=== PATIENT | female | born 1960 | race Caucasian/White ===

== ENCOUNTER 2018-05-15 12:15 | Inpatient (IN) | payer MEDICARE, OTHER, SELFPAY ==
[2018-05-15 13:04] LABS: #Basophils 0.1 thou/uL (0.0-0.2); #Eosinphils 0.2 thou/uL (0.0-0.7); #Lymphocytes 1.8 thou/uL (1.20-3.40); #Monocytes 0.8 thou/uL (0.11-0.59); #Neutrophils 9.1 thou/uL (1.40-6.50); %Basophils 0.5 % (0.0-1.0); %Eosinophils 1.5 % (0.0-10.0); %Lymphocytes 15.1 % (21.0-51.0); %Neutrophils 75.9 % (42.0-75.0); Hemoglobin 13.2 g/dL (12.0-16.0); Mean Corpuscular Hemoglobin 30.8 pg (27.0-31.0); Mean Corpuscular Volume 99.4 fL (78.0-98.0); Mean Platelet Volume 7.1 fL (7.4-10.4); Platelet Count 281 thou/uL (130-400); RBC Distribution Width 14.3 % (11.5-14.5); Red Blood Cell (RBC) Count 4.28 mill/uL (4.20-5.40)
[2018-05-15] MEDS ORDERED: ISOVUE-370 76%-LOCM 1 ML ONE (13:14)
[2018-05-15] MEDS ORDERED: Aspirin 325 MG TAB ONE (13:15)
[2018-05-15 13:18] LABS: ALT (SGPT) 26 U/L (8-55); AST (SGOT) 39 U/L (5-34); Albumin 3.7 g/dL (3.5-5.0); Alcohol 59 mg/dL (Less than 10); Alkaline Phosphatase 132 U/L (40-150); Anion Gap 13 mmol/L (10-20); BUN (Urea Nitrogen) 5 mg/dL (9.8-20.1); Bilirubin, Total 0.7 mg/dL (0.2-1.2); CK (CPK) 61 U/L (29-168); Calc. Creatinine Clearance 0 mL/min (70-130); Calcium 8.5 mg/dL (7.8-10.44); Carbon Dioxide 30 mmol/L (22-29); Chloride 90 mmol/L (98-107); Estimated GFR-MDRD 80; Globulin 3.2 g/dL (2.4-3.5); Glucose 106 mg/dL (70-105); Potassium 4.4 mmol/L (3.5-5.1); Protein, Total 6.9 g/dL (6.0-8.3); Sodium 129 mmol/L (136-145)
[2018-05-15 13:19] LABS: Platelet Morphology Comment Appears Adequate
--- NOTE | 2018-05-15 13:31 | RAD ---
CHEST 1 VIEW: Date: 05/15/18 HISTORY: Dyspnea. COMPARISON: Radiograph dated 03/16/16. FINDINGS: Heart size is enlarged. Old right central rib fractures. Increased left-sided pericardial fat pad. Ángela ngs are hypoinflated. IMPRESSION: No acute intrathoracic abnormality. POS: [facility]
[2018-05-15 13:39] LABS: CKMB 6.1 ng/mL (0-6.6)
[2018-05-15] MEDS ORDERED: predniSONE 20 MG TAB ONE (15:09)
[2018-05-15 15:28] LABS: Bilirubin Negative (Negative); Blood, Urine Negative (Negative); Clarity CLOUDY (Clear); Glucose, Urine (Dipstick) Negative (Negative); Leukocyte Large (Negative); Nitrite Negative (Negative); Protein, Urine (Dipstick) 30 mg/dL (Neg-Trace); Specific Gravity, Urine 1.006 (1.002-1.036); pH, Urine 7.5 (5.0-9.0)
[2018-05-15 15:31] LABS: Bacteria/HPF 2+ HPF (None Seen); Hyaline Casts/LPF 0-3 HYALINE CAST LPF (0-3 Hyaline); Pathc Cast-AUWi Flag 0.29 (0-2.49); RBC/HPF 0-3 HPF (0-3); Squamous Epithelial 0-3 HPF (0-3); WBC/HPF 21-50 HPF (0-3)
[2018-05-15 16:34] LABS: Troponin I 0.063 ng/mL (< 0.028)
[2018-05-15] MEDS ORDERED: Acetaminophen 325 MG TAB PO PRN ×2 (16:40→18:41)
--- NOTE | 2018-05-15 17:26 | CT ---
CT ANGIO CHEST PERFORMED WITH INTRAVENOUS CONTRAST ENHANCEMENT WITH 3D RECONSTRUCTIONS: HISTORY: Ethanol abuse. Tobacco abuse. Obesity. Shortness of breath. Low O2 saturations. FINDINGS: Subsegmental atelectatic changes are seen in the lung bases. Old right-sided rib fractures are incid entally noted. No significant mediastinal or hilar adenopathy. The patient's body habitus limits evaluation. In addition, the contrast bolus is less than optimal. The thoracic aorta is normal in caliber. No proximal pulmonary emboli are seen. More distal emboli are not excluded on the basis of this exam. The visualized liver parenchyma shows no focal findings. The gallbladder has been removed. IMPRESSION: Limited examination but no CT evidence for pulmonary embolus. POS: [facility]
[2018-05-15 17:36] LABS: Hemoglobin A1c 5.9 % (4.0-6.0)
[2018-05-15] MEDS ORDERED: Lorazepam 2 MG/ML VIAL SLOW IVP PRN (18:17)
[2018-05-15] MEDS ORDERED: Ondansetron ODT 4 MG TAB SL PRN (18:41)
[2018-05-15] MEDS ORDERED: Ondansetron PF 4 MG/2 ML Vial IVP PRN (18:41)
[2018-05-15] MEDS ORDERED: Nicotine 21 MG PATCH TOP PRN (18:43)
[2018-05-15] MEDS: Gabapentin 400 MG CAP PO SCH (20:31)
[2018-05-15] MEDS: cefTRIAXone\\ROCEPHIN 1 GM in Sodium Chloride 0.9% 100 ML IVPB SCH (20:31)
[2018-05-15 21:06] LABS: Troponin I 0.053 ng/mL (< 0.028)
[2018-05-16 06:11] LABS: Anion Gap 12 mmol/L (10-20); BUN (Urea Nitrogen) 5 mg/dL (9.8-20.1); Calc. Creatinine Clearance 144 mL/min (70-130); Carbon Dioxide 33 mmol/L (22-29); Chloride 92 mmol/L (98-107); Estimated GFR-MDRD 79; Glucose 155 mg/dL (70-105); Sodium 132 mmol/L (136-145)
[2018-05-16 06:25] LABS: Band 14 % (5-11); Hemoglobin 12.5 g/dL (12.0-16.0); Lymphocytes 8 % (21-51); MDiff Complete? YES; Mean Corpuscular HGB CONC 30.7 g/dL (32.0-36.0); Mean Corpuscular Hemoglobin 30.8 pg (27.0-31.0); Mean Platelet Volume 7.4 fL (7.4-10.4); Metamyelocyte 2 % (0-0); Monocytes 6 % (0-10); Neutrophil 70 % (42-75); Platelet Count 275 thou/uL (130-400); Platelet Morphology Comment Appears Adequate; Red Blood Cell (RBC) Count 4.08 mill/uL (4.20-5.40); White Blood Cell (WBC) Count 15.2 thou/uL (4.8-10.8)
[2018-05-16] MEDS: Gabapentin 400 MG CAP PO SCH ×3 (09:02→20:19)
[2018-05-16] MEDS: Enoxaparin Sodium 40 MG/0.4 ML SYRINGE SC SCH (09:03)
[2018-05-16] MEDS ORDERED: Furosemide 40 MG/4 ML VIAL SLOW IVP SCH (13:30)
--- NOTE | 2018-05-16 15:35 | PDOC.PN ---
- Subjective Encounter Start Date: 05/16/18 Encounter Start Time: 10:30 Subjective: pt up in bed no complains - Objective Resuscitation Status - Order Detail: 05/15/18 16:40 Resuscitation Status Routine Resuscitation Status: FULL: Full Resuscitation Vital Signs & Weight: Vital Signs (12 hours) Temp Pulse Resp BP BP Pulse Ox 05/16/18 15:22 98.4 F 96 18 167/76 H 95 05/16/18 12:05 98.3 F 82 20 132/86 98 05/16/18 12:03 132/86 05/16/18 08:00 155/73 H 05/16/18 07:50 97.6 F 104 H 20 155/73 H 155/73 H 94 L 05/16/18 04:00 97.8 F 107 H 20 158/82 H 98 Weight Weight 241 lb 2 oz I&O: 05/15/18 05/16/18 05/17/18 06:59 06:59 06:59 Intake Total 3000 Balance 3000 Result Diagrams: 05/16/18 05:37 05/16/18 05:37 Phys Exam - Physical Examination Neck: no nodes, no JVD, supple, full ROM Respiratory: no wheezing, no rales, no rhonchi, wheezing present, clear to auscultation bilateral Cardiovascular: RRR, no significant murmur, no rub, gallop, irregular Gastrointestinal: soft, non-tender, no distention, positive bowel sounds Musculoskeletal: edema present Neurological: non-focal, normal sensation, moves all 4 limbs Deviation from normal: some open blisters to left mayorga area Dx/Plan (1) Hypoxia Code(s): R09.02 - HYPOXEMIA Status: Acute (2) Alcohol abuse Code(s): F10.10 - ALCOHOL ABUSE, UNCOMPLICATED Status: Acute (3) Obesity hypoventilation syndrome Code(s): E66.2 - MORBID (SEVERE) OBESITY WITH ALVEOLAR HYPOVENTILATION Status : Acute (4) Alcohol abuse Code(s): F10.10 - ALCOHOL ABUSE, UNCOMPLICATED Status: Acute - Plan pt reluctant to get up and ambulate. Encouraged her to get up so we can -: see how much oxygen she needs. Pt states she wants to go to snf since -: she needs people to take care of her. will get PT to see pt. will continue -: abx for her for uti * . Review of Systems - Review of Systems Cardiovascular: negative: chest pain, palpitations, orthopnea, paroxysmal nocturnal dyspnea, edema, light headedness, other Gastrointestinal: negative: Nausea, Vomiting, Abdominal Pain, Diarrhea, Constipation, Melena, Hematochezia, Other Genitourinary: negative: Dysuria, Frequency, Incontinence, Hematuria, Retention , Other Musculoskeletal: negative: Neck Pain, Shoulder Pain, Arm Pain, Back Pain, Hand Pain, Leg Pain, Foot Pain, Other - Medications/Allergies Allergies/Adverse Reactions: Allergies Allergy/AdvReac Type Severity Reaction Status Date / Time No Known Allergies Allergy Verified 03/09/16 00:52 Medications: Current Medications Acetaminophen (Tylenol) 650 mg PO Q4H PRN PRN Reason: Headache/Fever/Mild Pain (1-3) Chlordiazepoxide HCl (Librium) 10 mg PO TID [facility] Last Admin: 05/16/18 14:39 Dose: 10 mg Enoxaparin Sodium (Lovenox) 40 mg SC 0900 [facility] Last Admin: 05/16/18 09:03 Dose: 40 mg Gabapentin (Neurontin) 800 mg PO TID [facility] Last Admin: 05/16/18 14:39 Dose: 800 mg Thiamine HCl 100 mg/ Sodium (Chloride) 51 mls @ 100 mls/hr IVPB Q24HR [facility] Last Admin: 05/15/18 21:17 Dose: 51 mls Ceftriaxone Sodium 1 gm/ (Sodium Chloride) 100 mls @ 200 mls/hr IVPB Q24HR [facility] Last Admin: 05/15/18 20:31 Dose: 100 mls Lorazepam (Ativan) 1 mg SLOW IVP Q6H PRN PRN Reason: Alcohol Withdrawal Sodium Chloride (Flush - Normal Saline) 10 ml IVF Q12HR [facility] Last Admin: 05/16/18 09:08 Dose: 10 ml Sodium Chloride (Flush - Normal Saline) 10 ml IVF PRN PRN PRN Reason: Saline Flush
[2018-05-16] MEDS: cefTRIAXone\\ROCEPHIN 1 GM in Sodium Chloride 0.9% 100 ML IVPB SCH (17:34)
--- NOTE | 2018-05-16 19:27 | HP ---
CHIEF COMPLAINT: Shortness of breath. HISTORY OF PRESENT ILLNESS: The patient is a 57-year-old female with a history of hypertension, currently not on any medication. She has also has a history of sleep apnea; however, could not afford to get a sleep study due to insurance issues, who was sent from the PCPs office for hypoxia. The patient stated that she went to visit her PCP and upon evaluation of her vitals, she was found to be hypoxic around the mid s, so the patient was sent to the hospital for further evaluation. The patient stated that last year in January, she went to visit her daughter in [facility]. She got pneumonia and after that she was in a custodial facility and then was discharged back home to her daughter. The patient states that she has moved here and has been quite alone and has nobody to help her around. She; however, drinks about 12 beers a day, sometimes also drinks liquor. The patient also states that she does not like taking showers because her bathroom is too small and she goes to motels or hotels to take showers because she just kind of feels better when she goes to hotels. Denies any chest tightness, any nausea, vomiting, or diarrhea. The patient states that "I know I have been short of breath for a significant amount of months and I know I require oxygen; however, I did not have insurance until now." The patient has been scheduled for a pulmonary sleep study and to see a director food and beverage; however, her appointment is later on in the month. The patient was admitted here due to hypoxia to hopefully to set her up with oxygen. PAST MEDICAL HISTORY: History of bipolar disorder, hypertension, anxiety, bilateral lower extremity neuropathy, depression, and osteoarthritis. PAST SURGICAL HISTORY: , cholecystectomy, and urethral stenting. SOCIAL HISTORY: She drinks about a 12 beers a day, sometimes including with liquor. She smokes a pack of cigarettes a day. Denies any recreational drug use. She is a full code. Lives alone in an apartment. REVIEW OF SYSTEMS: All negative except for the ones mentioned above in the HPI. ALLERGIES: SHE HAS NO KNOWN ALLERGIES. MEDICATIONS: She takes; 1. Gabapentin 400 mg t.i.d. 2. Motrin as needed. PHYSICAL EXAMINATION: VITAL SIGNS: As of the following; temperature of 98.3, heart rate of 82, 20, 98% on 3 L, and 132/86. GENERAL: She is awake, alert, and oriented x3. Able to speak complete sentences. Does not appear in distress. CV: S1 and S2 present. No murmurs, rubs, or gallops. LUNGS: Clear to auscultation. No rhonchi or wheezes noted. ABDOMEN: Soft and nontender. Bowel sounds are present x2. EXTREMITIES: She does have significant amount of lower extremity edema. She also does have some skin open wounds on her left mayorga area and also has tattooing on her left and right feet. NEUROLOGIC: Neurovascular knapp no focal deficits noted. SKIN: As I mentioned, she does have some broken blisters on her left mayorga area that have some mild erythema; however, no drainage has been noted and she does have significant thickening of the skin to her left ankle area. ASSESSMENT AND PLAN: The patient is a very pleasant 57-year-old female, who presents to the hospital with hypoxia. 1. Acute hypoxia. The patient most likely has hypoventilating syndrome due to obesity. She drops her saturations whenever she sleeps at night. The patient will be ambulated to see and most likely will qualify for oxygen, which we will set up. I did a CTA of chest to make sure that there was no other causes of her shortness of breath. A CTA was negative for any pulmonary embolisms. She did have some mild elevated troponins. I have done an echo, which is pending. However, she has no chest tightness or chest pain. 2. Hypertension. We will start the patient on some medications for her hypertension. 3. Morbid obesity. The patient has been advised for weight loss. However, she continues to eat, has been asking the staff members for multiple food trays. 4. Alcohol abuse. The patient's alcohol level was 58. We will put on CIWA protocol and put on Librium and also p.r.n. Ativan. 5. Smoking history. I advised her against smoking; however, she smokes a pack a day. She states that she is not going to smoke from today. 6. Deep venous thrombosis prophylaxis. We will put the patient on subcu Lovenox. Job ID: [id number]
[2018-05-17] MEDS ORDERED: Fentanyl BOLUS 250 ML IVPB PRN (01:29)
[2018-05-17] MEDS ORDERED: Lorazepam 2 MG/ML VIAL SLOW IVP PRN (01:29)
[2018-05-17] MEDS ORDERED: DISCONTINUE PREVIOUS NARCOTIC PAIN MEDICATIONS AND BENZODIAZEPINES FS SCH (01:29)
[2018-05-17] MEDS ORDERED: Propofol BOLUS 1,000 MG/100 ML VIAL IV PRN (01:29)
[2018-05-17] MEDS ORDERED: fentaNYL Citrate/PF 2,000 MCG in Sodium Chloride 0.9% 60 ML IV SCH (01:29)
[2018-05-17] MEDS ORDERED: Morphine 2 MG/ML SYRINGE SLOW IVP PRN (01:29)
[2018-05-17] MEDS ORDERED: Ventilator Sedation Protocol 1 EACH FS SCH (01:30)
--- NOTE | 2018-05-17 01:31 | PDOC.EVN ---
Event Note - Event Note Event Note: Code blue called and resident team promptly responded including Dr. Sun, validation software facilitator FMR physician. Compressions in progress at time of arrival. 1 mg epi given and appeared IV went bad. New IV site placed and another round of 1 mg epi given. Pulse obtained at next pulse check. 1st attempt of intubation via glidescope made by Dr. Rene. Patient then bagged and sats reached 94% but unable to further improve. Patient then intubated on 2nd attempt by myself via glidescope. Breath sounds noted in bilateral lung juarez. No air sound in abdomen. Good color change noted on colormetric CO2 detector. Blood pressure noted to be systolic > 140. O2 sat improved to 99%. Hospitalist caring for patient at bedside. Patient transferred to ICU.
--- NOTE | 2018-05-17 01:35 | PDOC.EVN ---
Event Note - Event Note Event Note: Code blue activated since pt became bradycardic and unresponsive, with ROSC, intubated, mildly tachy, blood pressure normal range, seems that pt. had gone in DT earlier today, will transfer to icu, consult critical care, follow recommendations.(please see code sheet for details) CXR reviewed and ET tube, OG tube in right position
[2018-05-17 01:40] LABS: INR-International Normal Ratio 1.1; Prothrombin Time 14.1 SEC (12.0-14.7)
[2018-05-17 01:46] LABS: Actual Bicarbonate (HCO3a) 31.4 mEq/L (22-28); Calcium, Ionized 1.07 mmol/L (1.12-1.30); Carboxyhemoglobin (COHb) 2.8 gm% (0.0-3.0); Hemoglobin (Hb) 13.2 g/dL (12.0-16.0); O2 Tension (PaO2) 65.6 mmHg (80.0-100.0); Potassium - ABG Lab 5.23 mmol/L (3.70-5.30)
[2018-05-17 01:49] LABS: Anion Gap 21 mmol/L (10-20); BUN (Urea Nitrogen) 7 mg/dL (9.8-20.1); Calc. Creatinine Clearance 89 mL/min (70-130); Calcium 9.1 mg/dL (7.8-10.44); Carbon Dioxide 27 mmol/L (22-29); Chloride 91 mmol/L (98-107); Estimated GFR-MDRD 45; Glucose 342 mg/dL (70-105); Magnesium 2.3 mg/dL (1.6-2.6); Potassium 5.3 mmol/L (3.5-5.1); Sodium 134 mmol/L (136-145)
[2018-05-17 01:52] LABS: Troponin I 0.073 ng/mL (< 0.028)
[2018-05-17 01:58] LABS: CO2 Tension 82.5 mmHg (35.0-45.0); Puncture Site RBR
[2018-05-17 01:59] LABS: ALV-art Gradient 259.075 (0-20)
[2018-05-17] MEDS ORDERED: Sodium Chloride 0.9% 1,000 ML IV SCH ×2 (02:00→03:45)
[2018-05-17] MEDS ORDERED: MEROPENEM 1 GM/50 ML 1 GM in Premix Bag 1 BAG IVPB SCH (02:15)
[2018-05-17] MEDS ORDERED: Vancomycin HCl 1 GM in Premix Bag 1 BAG IVPB SCH (02:15)
[2018-05-17 02:22] LABS: Band 6 % (5-11); Hemoglobin 12.9 g/dL (12.0-16.0); Lymphocytes 22 % (21-51); MDiff Complete? YES; Macrocytosis SLIGHT = 6-15 cells (100X) (0-5/hpf); Mean Corpuscular HGB CONC 28.9 g/dL (32.0-36.0); Mean Corpuscular Hemoglobin 30.9 pg (27.0-31.0); Mean Platelet Volume 8.7 fL (7.4-10.4); Monocytes 5 % (0-10); Neutrophil 63 % (42-75); Nucleated RBC 2 % (0); Platelet Count 262 thou/uL (130-400); Platelet Morphology Comment Appears Adequate; Polychromasia SLIGHT = 2-3 cells (100X) (0-2/hpf); RBC Distribution Width 14.4 % (11.5-14.5); Reactive Lymphocytes 4 % (0-10); Red Blood Cell (RBC) Count 4.17 mill/uL (4.20-5.40); White Blood Cell (WBC) Count 22.4 thou/uL (4.8-10.8)
[2018-05-17] MEDS ORDERED: Norepinephrine 8 MG/250 ML BAG IVPB PRN (02:36)
[2018-05-17] MEDS ORDERED: Sodium Bicarb 50 MEQ/50 ML VIAL ONE (02:36)
[2018-05-17] MEDS ORDERED: Pharmacy to Dose 1 EACH VANCOMYCIN IVPB PRN (02:39)
[2018-05-17] MEDS ORDERED: Sodium Bicarb 50 MEQ/50 ML Abboject 8.4% SYRINGE IVP SCH ×2 (02:45)
[2018-05-17 03:00] LABS: Band 4 % (5-11); Hemoglobin 10.6 g/dL (12.0-16.0); Hypochromia SLIGHT = 6-15 cells (100X) (0-5/hpf); Lymphocytes 8 % (21-51); MDiff Complete? YES; Macrocytosis SLIGHT = 6-15 cells (100X) (0-5/hpf); Mean Corpuscular HGB CONC 28.4 g/dL (32.0-36.0); Mean Corpuscular Hemoglobin 29.2 pg (27.0-31.0); Mean Platelet Volume 7.3 fL (7.4-10.4); Neutrophil 88 % (42-75); Nucleated RBC 1 % (0); Platelet Count 312 thou/uL (130-400); Platelet Morphology Comment Appears Adequate; RBC Distribution Width 14.2 % (11.5-14.5); Red Blood Cell (RBC) Count 3.64 mill/uL (4.20-5.40); White Blood Cell (WBC) Count 16.5 thou/uL (4.8-10.8)
[2018-05-17 03:18] LABS: ALT (SGPT) 24 U/L (8-55); AST (SGOT) 51 U/L (5-34); Albumin 2.8 g/dL (3.5-5.0); Alkaline Phosphatase 88 U/L (40-150); Anion Gap 15 mmol/L (10-20); BUN (Urea Nitrogen) 9 mg/dL (9.8-20.1); Bilirubin, Total 0.5 mg/dL (0.2-1.2); Calc. Creatinine Clearance 95 mL/min (70-130); Carbon Dioxide 30 mmol/L (22-29); Chloride 95 mmol/L (98-107); Estimated GFR-MDRD 49; Globulin 2.7 g/dL (2.4-3.5); Glucose 201 mg/dL (70-105); Potassium 5.1 mmol/L (3.5-5.1); Protein, Total 5.5 g/dL (6.0-8.3); Sodium 135 mmol/L (136-145)
[2018-05-17] MEDS: Propofol 1,000 MG/100 ML VIAL IV PRN ×3 (05:43→20:59)
[2018-05-17] MEDS ORDERED: Meropenem 1 GM in Sodium Chloride 0.9% 100 ML IVPB SCH (06:00)
[2018-05-17 07:02] LABS: Lactic Acid 2.8 mmol/L (0.5-2.2)
[2018-05-17 07:23] LABS: Actual Bicarbonate (HCO3a) 33.4 mEq/L (22-28); Base Excess (BEa) 9.4 mEq/L (-2.0 to +3.0); CO2 Tension 42.4 mmHg (35.0-45.0); Calcium, Ionized 1.03 mmol/L (1.12-1.30); Carboxyhemoglobin (COHb) 1.6 gm% (0.0-3.0); Hemoglobin (Hb) 13.7 g/dL (12.0-16.0); Potassium - ABG Lab 4.54 mmol/L (3.70-5.30); pH, Arterial 7.51 (7.35-7.45)
[2018-05-17 07:25] LABS: O2 Tension (PaO2) 47.7 mmHg (80.0-100.0)
[2018-05-17 07:26] LABS: Puncture Site RR
--- NOTE | 2018-05-17 08:15 | RAD ---
PORTABLE AP CHEST X-RAY: 05/17/2018 HISTORY: Intubated. COMPARISON: 05/15/2018 FINDINGS: An endotracheal tube is noted in place with the tip overlying the level of the T4 vertebral body. Th e jad is not well delineated on this examination, but it is likely above the level of the jad. The nasogastric tube is noted in place, but the more distal portion of the nasogastric tube is unabl e to be delineated on this exam. It does appear to course into the left upper quadrant. A pacing de vice overlies the left mid chest. This obscures a large portion of the left chest. There are linear and patchy densities within the right mid lung zone, which may be related to atelectasis, but contin ued followup is recommended. Remote right-sided rib fractures are present. The cardiac silhouette i s magnified by projection but does appear enlarged. IMPRESSION: 1. Suboptimal examination due to the technique of the study, as well as the overlying pacing device overlying the left mid chest. However, there is linear and slight patchy density in the right mid gabi ng zone, in the perihilar region, which may be related to atelectasis. 2. Mild prominence of perihilar interstitial densities, which could be related to an element of mild pulmonary edema. 3. Cardiomegaly. 4. Limited evaluation of lines and tubes, but the endotracheal tube does appear to be above the leve l of the jad. POS: [facility]
[2018-05-17] MEDS: Lisinopril 10 MG TAB PO SCH (09:26)
[2018-05-17] MEDS: Gabapentin 400 MG CAP PO SCH (09:26)
[2018-05-17] MEDS: Famotidine/PF 20 mg/2ml Vial SLOW IVP SCH ×2 (09:27→19:54)
[2018-05-17] MEDS: Enoxaparin Sodium 40 MG/0.4 ML SYRINGE SC SCH (09:27)
[2018-05-17] MEDS ORDERED: hydrALAZINE 20 MG/ML VIAL ONE (10:01)
[2018-05-17] MEDS ORDERED: Albuterol Sulfate 2.5 mg/3 ml Neb NEB PRN (10:58)
[2018-05-17] MEDS: MEROPENEM 1 GM/50 ML 1 GM in Premix Bag 1 BAG IVPB SCH ×2 (11:11→17:47)
[2018-05-17] MEDS ORDERED: EPINEPHrine 1 MG/10 ML Abboject SYRINGE ONE (11:11)
[2018-05-17] MEDS ORDERED: SYSTANE 3.5 GM TUBE EA EYE PRN (11:14)
[2018-05-17] MEDS ORDERED: predniSONE 20 MG TAB PO SCH (11:15)
[2018-05-17] MEDS ORDERED: Multivitamins, Adult 10 ML, Folic Acid 1 MG, Thiamine HCl 100 MG in Dextrose 5 %-0.45 %... IV SCH (11:15)
--- NOTE | 2018-05-17 11:20 | PQF ---
[facility] Medical Director Of Hospice Crystal Reports Winform FRED Christine KARISHMA [id number] [facility]-A08 [id number] CLINICAL DOCUMENTATION IMPROVEMENT CLARIFICATION FORM: ICD-10 Updated PLEASE DO AN ADDENDUM TO THE PROGRESS NOTE WITH ANY DOCUMENTATION UPDATES OR ADDITIONS AND CARRY THROUGH TO DC SUMMARY. THANK YOU. DATE: 05/17/2018 ATTN: DR. ALMEIDA Please exercise your independent, professional judgment in responding to the clarification form. Clinical indicators are provided on the bottom of this form for your review Please check appropriate box(s): [ ] Acute Respiratory Failure: [ ] with Hypoxia[ ] with Hypercapnia [ x ] Acute On Chronic Respiratory Failure: [ x] with Hypoxia [ x ] with Hypercapnia [ ] Chronic Respiratory Failure only [ ] with Hypoxia [ ] with Hypercapnia [ ] Hypoxia [ ] Other diagnosis [ ] Unable to determine IMPORTANT In addition, please specify: Present on Admission (POA): [ ] Yes [ ] No [ ] Unable to determine For continuity of documentation, please document condition throughout progress notes and discharge summary. Thank You. CLINICAL INDICATORS - SIGNS / SYMPTOMS / LABS 05/15-ER: O2 sats in MD office in low 80s. Wheezing present, audibly, scattered. Hypoxic respiratory distress. Placed on 2L by EMS with sats 92-99%. Code Blue with compressions and intubated at that time. RISK FACTORS Daily ETOH use Morbid Obesity Tobacco abuse 05/16-H&P: Most likely has obesity hypoventilating syndrome due to obesity. TREATMENTS Oxygen Monitoring of oxygenation status Mechanical ventilation Respiratory treatments Pulmonary Consult ICU Thank you, Yeni (This form is maintained as a part of the permanent medical record) 2014 [employer]. All Rights Reserved Yeni Newell RN, CDIS [email or web address] [phone] [facility]
--- NOTE | 2018-05-17 12:03 | CON ---
DATE OF CONSULTATION: 05/17/2018 SERVICE: Pulmonary Medicine. REASON FOR CONSULT: The patient is a 57-year-old morbidly obese white female with past medical history significant for tobacco abuse. Ultimately, she presented to the hospital with increasing shortness of breath. She was also having some fevers. Either way, she was tucked into the floor. She developed increasing respiratory distress. She had a PEA event. She underwent chest compressions for unknown period of time to me at this point. Return of circulation was established. She was placed on mechanical ventilation and tucked into the ICU. She redemonstrated hemodynamic stability. That being said, she starting to have a little bit of jerking movement. It is not clear with this represents at this moment. The patient certainly cannot provide any additional elements of the history at this point. PAST MEDICAL HISTORY: 1. Bipolar disorder. 2. Anxiety disorder. 3. Major depressive disorder. 4. Hypertension. 5. Neuropathy of the bilateral lower extremities. 6. Alcohol abuse. 7. Osteoarthritis. PAST SURGICAL HISTORY: 1. section. 2. Cholecystectomy. 3. Ureteral stent. SOCIAL HISTORY: She drinks a case of alcohol on a daily basis. She smokes a pack cigarettes on a daily basis and has greater than 40-pack year history of smoking. She denied recreational drug use on presentation to the hospital. She lives alone in apartment. ALLERGIES: NO KNOWN DRUG ALLERGIES. MEDICATIONS: List of her inpatient medications was reviewed and updated. REVIEW OF SYSTEMS: Cannot be obtained as the patient is currently intubated and sedated. PHYSICAL EXAMINATION: VITAL SIGNS: T-max 100.5. Pulse 75, blood pressure 185/114, respirations 19, saturation 97% on 41% FiO2 and a PEEP of 7. GENERAL: The patient is intubated. She is under the influence of sedating medication. Occasionally, she will have a little rhythmic jerking movement. HEENT: Normocephalic and atraumatic. Sclerae white. Conjunctivae pink. Oral mucosa is moist without lesions. LUNGS: Decent air entry. There is rhonchi and prolonged expiratory phase. No wheezing is appreciated anteriorly. I do not hear any crackles dependently. HEART: Normal rate. Regular. ABDOMEN: Soft, nontender, nondistended. Bowel sounds are positive. MUSCULOSKELETAL: No cyanosis or clubbing. There is 1+ pitting throughout. GENITOURINARY: Renee catheter in place. NEUROLOGIC: She seems to have a grimace with noxious stimuli to all 4 extremities. That being said, I would not characterize any of her movements is overt withdrawal features. Her Babinski is neutral. Pupils are equal, round, and reactive. From time to time, she will have a rhythmic jerking sensation characterized by the contraction followed by relaxation. This is only very short lived and episodic. I do not see anything that appears to look like myoclonic jerking at this moment. LABORATORY DATA: WBC 16.5 and downtrending, hemoglobin 10.6, platelets 312,000. Neutrophil count 88% on top of 4% bands. INR 1.1. PH 7.51, pCO2 42, PO2 47.7. Creatinine is downtrending to 1.15, BUN 9, anion gap 15 and downtrending, bicarb 30, lactate was 9.8, but has improved to 2.8. Sodium 135, potassium 5.1. Liver function studies are essentially unremarkable. Troponin is 0.07, which is gently up trending. Urinalysis is unremarkable. Plasma alcohol level was 59 on presentation. Urine culture is growing Citrobacter, which is resistant to 1st, 2nd, and 3rd generation cephalosporins. It is also resistant to Zosyn. IMAGING: CT of the chest demonstrates subtle interstitial fullness and ground- glass opacifications scattered throughout bilateral lung juarez. It appears that most of these nodular lesions are located in the interstitial areas consistent with possibly a viral prodrome or atypical infection. She has a scar tissue around the right chest surrounding three healing rib fractures. She has got a large liver. ASSESSMENT: 1. Acute hypoxic and hypercapnic respiratory failure. 2. Pulseless electrical activity arrest. 3. Chronic obstructive pulmonary disease with acute exacerbation. 4. Severe sepsis. 5. Acute kidney injury, improving. 6. Urinary tract infection secondary to fairly resistant Citrobacter. DISCUSSION AND PLAN: We will switch her antibiotics up so that we put her on something that covers this organism in the urine. We will do an EEG. I will continue her nebulized medications and steroids directed at her COPD exacerbation. We will give her p.r.n. hydralazine. Once the EEG is done, we may choose to interrupt sedation altogether, so that we can more fully evaluate her neurologic status. For the time being, propofol is perfectly reasonable. Pulmonary/ Critical Care will continue to follow along in this location. CRITICAL CARE TIME: 30 minutes. Job ID: [id number] MTDD
[2018-05-17] MEDS: hydrALAZINE 20 MG/ML VIAL SLOW IVP PRN (12:33)
--- NOTE | 2018-05-17 15:20 | EEG ---
Referring Physician: George MIDDLETON EEG # [id number] TEST TYPE: STAT PORTABLE INPATIENT REPORT: AN EEG USING THE INTERNATIONAL TEN-TWENTY SYSTEM OF ELECTRODE PLACEMENT WAS PERFORMED. The background activity is severely suppressed throughout the recording. No epileptiform features were noted with the patients tremor/twitching. Photic stimulation was unremarkable. IMPRESSION: THIS IS AN ABNORMAL EEG FOR THE FINDINGS OF SEVERE SUPPRESSION WITH MINIMAL ELECTROCEREBRAL ACTIVITY CONSISTENT WITH A SEVERE NEURONAL INJURY. Metalsmith Helper: BOB Public Housing Manager: [email or web address]
[2018-05-17] MEDS: Carvedilol 3.125 MG TAB PO SCH (17:51)
[2018-05-18] MEDS: MEROPENEM 1 GM/50 ML 1 GM in Premix Bag 1 BAG IVPB SCH ×3 (01:21→17:21)
[2018-05-18] MEDS: Propofol 1,000 MG/100 ML VIAL IV PRN ×4 (01:21→15:12)
--- NOTE | 2018-05-18 05:54 | PDOC.PN ---
- Subjective Encounter Start Date: 05/17/18 Encounter Start Time: 08:45 Subjective: pt intubated - Objective Resuscitation Status - Order Detail: 05/15/18 16:40 Resuscitation Status Routine Resuscitation Status: FULL: Full Resuscitation Vital Signs & Weight: Vital Signs (12 hours) Temp Pulse Resp BP Pulse Ox 05/18/18 04:00 98.6 F 28 H 05/18/18 02:28 89 163/81 H 05/18/18 02:00 23 H 05/18/18 00:00 23 H 05/17/18 23:52 85 144/72 H 05/17/18 23:00 97.9 F 05/17/18 22:00 19 05/17/18 21:20 86 133/77 05/17/18 20:00 24 H 05/17/18 19:42 96 05/17/18 19:00 99.5 F 05/17/18 18:41 83 179/97 H 05/17/18 18:00 22 H Weight Admit Weight 341 lb Weight 341 lb Most Recent Monitor Data Heart Rate from ECG 94 NIBP 174/86 NIBP BP-Mean 101 Respiration from ECG 33 SpO2 92 I&O: 05/16/18 05/17/18 05/18/18 06:59 06:59 06:59 Intake Total 3000 4675.0 1605.7 Output Total 2225 1545 Balance 3000 2450.0 60.7 Result Diagrams: 05/17/18 02:33 05/17/18 02:33 Phys Exam - Physical Examination Respiratory: no wheezing, no rales, no rhonchi, wheezing present, clear to auscultation bilateral Cardiovascular: RRR, no significant murmur, no rub, gallop, irregular Gastrointestinal: soft, non-tender, no distention, positive bowel sounds Dx/Plan (1) Acute respiratory failure with hypoxia and hypercapnia Code(s): J96.01 - ACUTE RESPIRATORY FAILURE WITH HYPOXIA; J96.02 - ACUTE RESPIRATORY FAILURE WITH HYPERCAPNIA Status: Acute (2) PEA (Pulseless electrical activity) Code(s): I46.9 - CARDIAC ARREST, CAUSE UNSPECIFIED Status: Acute (3) Hypoxia Code(s): R09.02 - HYPOXEMIA Status: Acute (4) Alcohol abuse Code(s): F10.10 - ALCOHOL ABUSE, UNCOMPLICATED Status: Acute (5) Obesity hypoventilation syndrome Code(s): E66.2 - MORBID (SEVERE) OBESITY WITH ALVEOLAR HYPOVENTILATION Status : Acute (6) Alcohol abuse Code(s): F10.10 - ALCOHOL ABUSE, UNCOMPLICATED Status: Acute - Plan overnight pt was found to be in PEA arrest she was intubated -: abx broaden for now. CTA negative for PE, echo adequate ef -: pt on propofol for alcohol withdrawal. -: will update family * . Review of Systems - Review of Systems Other: unable to obtain - Medications/Allergies Allergies/Adverse Reactions: Allergies Allergy/AdvReac Type Severity Reaction Status Date / Time No Known Allergies Allergy Verified 03/09/16 00:52 Medications: Current Medications Acetaminophen (Tylenol) 650 mg PO Q4H PRN PRN Reason: Headache/Fever/Mild Pain (1-3) Albuterol Sulfate (Ventolin) 2.5 mg NEB Q2H PRN PRN Reason: Wheezing Albuterol/Ipratropium (Duoneb) 3 ml NEB [id number] [facility] Last Admin: 05/17/18 23:52 Dose: 3 ml Carvedilol (Coreg) 3.125 mg PO BID-[facility] Last Admin: 05/17/18 17:51 Dose: 3.125 mg Enoxaparin Sodium (Lovenox) 40 mg SC 0900 [facility] Last Admin: 05/17/18 09:27 Dose: 40 mg Famotidine (Pepcid) 20 mg SLOW IVP BID [facility] Last Admin: 05/17/18 19:54 Dose: 20 mg Folic Acid (Folvite) 1 mg PO DAILY [facility] Hydralazine HCl (Apresoline) 20 mg SLOW IVP Q15MIN PRN PRN Reason: SBP > 180, HOLD FOR HR < 90 Last Admin: 05/17/18 12:33 Dose: 20 mg Thiamine HCl 100 mg/ Sodium (Chloride) 51 mls @ 100 mls/hr IVPB Q24HR [facility] Last Admin: 05/17/18 19:54 Dose: 51 mls Fentanyl Citrate 2,000 mcg/ (Sodium Chloride) 100 mls @ 0 mls/hr IV INF [facility]; Protocol Stop: 06/16/18 01:29 Fentanyl Citrate (Fentanyl Bolus) 250 mls @ 0 mls/hr IVPB PRN PRN PRN Reason: Breakthrough pain/agitation Stop: 06/16/18 01:29 Meropenem 1 gm/ Device 50 mls @ 100 mls/hr IVPB 0200,1000,1800 [facility] Last Admin: 05/18/18 01:21 Dose: 50 mls Lisinopril (Zestril) 10 mg PO DAILY [facility] Last Admin: 05/17/18 09:26 Dose: 10 mg Lorazepam (Ativan) 2 mg SLOW IVP Q1H PRN PRN Reason: Breakthrough agitation Stop: 06/16/18 01:29 Last Admin: 05/17/18 09:54 Dose: 2 mg Mineral Oil/White Petrolatum (Systane Nighttime Eye Ointment) 0 gm EA EYE PRN PRN PRN Reason: Dry Eyes Miscellaneous Medication (Ventilator Sedation Protocol) 1 each FS ONE [facility] Stop: 06/16/18 01:31 Discontinue Previous Narcotic Pain Medications And Benzodiazepines 1 each FS .ONE [facility] Stop: 06/16/18 01:29 Prednisone (Prednisone) 40 mg PO QA-[facility] Stop: 05/21/18 08:01 Propofol (Diprivan) 1,000 mg IV INF PRN; Protocol PRN Reason: TO ACHIEVE GOAL RASS Stop: 06/16/18 01:29 Last Admin: 05/18/18 01:21 Dose: 1,000 mg Propofol (Diprivan Bolus) 20 mg IV Q5MIN PRN PRN Reason: BREAKTHROUGH AGITATION Stop: 06/16/18 01:29 Sodium Chloride (Flush - Normal Saline) 10 ml IVF Q12HR [facility] Last Admin: 05/17/18 19:54 Dose: 10 ml Sodium Chloride (Flush - Normal Saline) 10 ml IVF PRN PRN PRN Reason: Saline Flush Thiamine HCl (Thiamine) 100 mg PO DAILY [facility]
[2018-05-18 05:58] LABS: #Eosinphils 0.1 thou/uL (0.0-0.7); #Lymphocytes 1.5 thou/uL (1.20-3.40); #Monocytes 0.9 thou/uL (0.11-0.59); %Basophils 0.1 % (0.0-1.0); %Eosinophils 0.7 % (0.0-10.0); %Lymphocytes 9.4 % (21.0-51.0); %Monocytes 5.9 % (0.0-10.0); %Neutrophils 83.9 % (42.0-75.0); Hemoglobin 12.7 g/dL (12.0-16.0); Mean Corpuscular HGB CONC 30.9 g/dL (32.0-36.0); Mean Platelet Volume 7.4 fL (7.4-10.4); Platelet Count 243 thou/uL (130-400); RBC Distribution Width 14.2 % (11.5-14.5); Red Blood Cell (RBC) Count 4.08 mill/uL (4.20-5.40); White Blood Cell (WBC) Count 15.5 thou/uL (4.8-10.8)
[2018-05-18 06:14] LABS: Anion Gap 12 mmol/L (10-20); BUN (Urea Nitrogen) 12 mg/dL (9.8-20.1); Calc. Creatinine Clearance 166 mL/min (70-130); Calcium 8.7 mg/dL (7.8-10.44); Carbon Dioxide 33 mmol/L (22-29); Chloride 96 mmol/L (98-107); Estimated GFR-MDRD 61; Glucose 126 mg/dL (70-105); Magnesium 1.4 mg/dL (1.6-2.6); Potassium 3.9 mmol/L (3.5-5.1); Sodium 137 mmol/L (136-145)
[2018-05-18] MEDS: Folic Acid 1 MG TAB PO SCH (09:51)
[2018-05-18] MEDS: predniSONE 20 MG TAB PO SCH (09:51)
[2018-05-18] MEDS: Famotidine/PF 20 mg/2ml Vial SLOW IVP SCH ×2 (09:52→20:00)
[2018-05-18] MEDS: Enoxaparin Sodium 40 MG/0.4 ML SYRINGE SC SCH (09:52)
[2018-05-18] MEDS: Carvedilol 3.125 MG TAB PO SCH ×2 (09:52→16:47)
[2018-05-18] MEDS: Lisinopril 10 MG TAB PO SCH (09:52)
--- NOTE | 2018-05-18 14:21 | PRG ---
DATE OF SERVICE: 05/18/2018 SERVICE: Pulmonary Medicine. INTERVAL HISTORY: The patient had essentially an uneventful evening. Her blood pressures have been in the severe range. We have been having a difficult time controlling them. She cannot provide any additional elements of the history. Otherwise, there has been no events overnight. PHYSICAL EXAMINATION: VITAL SIGNS: Afebrile. Pulse 66, blood pressure 175/88, respirations 29, saturation 97% on 41% FiO2 and PEEP of 5. HEENT: Normocephalic and atraumatic. Sclerae white. Conjunctivae pink. Oral mucosa is moist without lesions. LUNGS: Decent air entry. There is a prolonged expiratory phase with wheezing and rhonchi present. Dependent crackles are noted today. HEART: Normal rate, regular. ABDOMEN: Soft, nontender, nondistended. Bowel sounds are positive. MUSCULOSKELETAL: No cyanosis or clubbing. There is diffuse 1 to 2+ pitting throughout with chronic stasis changes in the bilateral lower extremities. : Renee catheter in place. NEUROLOGIC: Grossly nonfocal. LABORATORY DATA: WBC 15.5, hemoglobin 12.7, and platelets 243,000. Basic metabolic profile is essentially unremarkable. Magnesium 1.4. Vitamin B12 falls within the normal limits. Urine culture is growing Citrobacter. Blood cultures x2 are unremarkable to date. IMAGING: EEG was performed. There is no significant electrical abnormality consistent with epileptiform discharges. That being said, there is severe diffuse slowing consistent with fairly extensive anoxic injury. ASSESSMENT: 1. Acute hypoxic and hypercapnic respiratory failure. 2. Pulseless electrical activity arrest. 3. Chronic obstructive pulmonary disease. 4. Severe sepsis. 5. Urinary tract infection secondary to Citrobacter. 6. Acute kidney injury, resolved. DISCUSSION AND PLAN: I will provide her with a dose of diuretic. Magnesium will be replaced today. I will initiate Precedex as she is likely demonstrating some fairly significant withdrawal features from both alcohol and other medications. Hopefully, we will be able to wean away the propofol. Currently our barrier to extubation is her mentation. I would not be able to better assess this until we can get the propofol off, which is being limited by her withdrawal features. Critical Care will continue to follow. Critical care time: 30 minutes. Job ID: [id number] [facility]
[2018-05-18] MEDS ORDERED: Furosemide 40 MG/4 ML VIAL SLOW IVP SCH (14:30)
[2018-05-18] MEDS ORDERED: Magnesium Sulfate 4 GM in Sodium Chloride 0.9% 250 ML 250 ML IVPB SCH (15:00)
--- NOTE | 2018-05-18 15:47 | PDOC.PN ---
- Subjective Encounter Start Date: 05/18/18 Encounter Start Time: 13:00 Subjective: pt intubated - Objective Resuscitation Status - Order Detail: 05/15/18 16:40 Resuscitation Status Routine Resuscitation Status: FULL: Full Resuscitation Vital Signs & Weight: Vital Signs (12 hours) Temp Pulse Pulse Pulse Resp BP BP 05/18/18 15:13 73 192/99 H 05/18/18 14:00 22 H 05/18/18 13:31 66 175/88 H 05/18/18 12:00 99.5 F 20 05/18/18 11:01 80 84 166/96 H 05/18/18 10:46 87 181/97 H 05/18/18 10:00 23 H 05/18/18 09:52 197/109 H 05/18/18 08:17 90 176/98 H 05/18/18 07:51 28 H 05/18/18 07:00 99.5 F 05/18/18 06:00 23 H 05/18/18 04:00 98.6 F 28 H BP Pulse Ox Pulse Ox Pulse Ox 05/18/18 15:13 05/18/18 14:00 05/18/18 13:31 05/18/18 12:00 05/18/18 11:01 170/92 H 97 97 05/18/18 10:46 05/18/18 10:00 05/18/18 09:52 05/18/18 08:17 05/18/18 07:51 96 05/18/18 07:00 05/18/18 06:00 05/18/18 04:00 Weight Admit Weight 341 lb Weight 347 lb 3.649 oz Most Recent Monitor Data Heart Rate from ECG 73 NIBP 178/96 NIBP BP-Mean 130 Respiration from ECG 21 SpO2 94 I&O: 05/17/18 05/18/18 05/19/18 06:59 06:59 06:59 Intake Total 4675.0 2244.7 160 Output Total 2225 1920 1110 Balance 2450.0 324.7 -950 Result Diagrams: 05/18/18 05:32 05/18/18 05:32 Phys Exam - Physical Examination Neck: no nodes, no JVD, supple, full ROM Respiratory: no wheezing, no rales, no rhonchi, wheezing present, clear to auscultation bilateral Cardiovascular: RRR, no significant murmur, no rub, gallop, irregular Gastrointestinal: soft, non-tender, no distention, positive bowel sounds Dx/Plan (1) Acute respiratory failure with hypoxia and hypercapnia Code(s): J96.01 - ACUTE RESPIRATORY FAILURE WITH HYPOXIA; J96.02 - ACUTE RESPIRATORY FAILURE WITH HYPERCAPNIA Status: Acute (2) PEA (Pulseless electrical activity) Code(s): I46.9 - CARDIAC ARREST, CAUSE UNSPECIFIED Status: Acute (3) Hypoxia Code(s): R09.02 - HYPOXEMIA Status: Acute (4) Alcohol abuse Code(s): F10.10 - ALCOHOL ABUSE, UNCOMPLICATED Status: Acute (5) Obesity hypoventilation syndrome Code(s): E66.2 - MORBID (SEVERE) OBESITY WITH ALVEOLAR HYPOVENTILATION Status : Acute (6) Alcohol abuse Code(s): F10.10 - ALCOHOL ABUSE, UNCOMPLICATED Status: Acute - Plan updated pt's daughter and brother -: continue abx for now -: pt on precedex and weaning off propofol -: eeg negative for seizure * . Review of Systems - Review of Systems Other: unable to obtain - Medications/Allergies Allergies/Adverse Reactions: Allergies Allergy/AdvReac Type Severity Reaction Status Date / Time No Known Allergies Allergy Verified 03/09/16 00:52 Medications: Current Medications Acetaminophen (Tylenol) 650 mg PO Q4H PRN PRN Reason: Headache/Fever/Mild Pain (1-3) Albuterol Sulfate (Ventolin) 2.5 mg NEB Q2H PRN PRN Reason: Wheezing Albuterol/Ipratropium (Duoneb) 3 ml NEB [id number] [facility] Last Admin: 05/18/18 13:31 Dose: 3 ml Carvedilol (Coreg) 3.125 mg PO BID-WM [facility] Last Admin: 05/18/18 09:52 Dose: 3.125 mg Enoxaparin Sodium (Lovenox) 40 mg SC 0900 [facility] Last Admin: 05/18/18 09:52 Dose: 40 mg Famotidine (Pepcid) 20 mg SLOW IVP BID [facility] Last Admin: 05/18/18 09:52 Dose: 20 mg Folic Acid (Folvite) 1 mg PO DAILY [facility] Last Admin: 05/18/18 09:51 Dose: 1 mg Furosemide (Lasix) 40 mg SLOW IVP NOW [facility] Stop: 05/18/18 16:30 Last Admin: 05/18/18 14:26 Dose: 40 mg Hydralazine HCl (Apresoline) 20 mg SLOW IVP Q15MIN PRN PRN Reason: SBP > 180, HOLD FOR HR < 90 Last Admin: 05/17/18 12:33 Dose: 20 mg Fentanyl Citrate 2,000 mcg/ (Sodium Chloride) 100 mls @ 0 mls/hr IV INF [facility]; Protocol Stop: 06/16/18 01:29 Fentanyl Citrate (Fentanyl Bolus) 250 mls @ 0 mls/hr IVPB PRN PRN PRN Reason: Breakthrough pain/agitation Stop: 06/16/18 01:29 Meropenem 1 gm/ Device 50 mls @ 100 mls/hr IVPB 0200,1000,1800 [facility] Last Admin: 05/18/18 09:53 Dose: 50 mls Dexmedetomidine HCl 200 mcg/ (Sodium Chloride) 50 mls @ 0 mls/hr IVPB INF [facility]; Protocol Last Admin: 05/18/18 13:09 Dose: 50 mls Magnesium Sulfate 4 gm/ Sodium (Chloride) 258 mls @ 86 mls/hr IVPB NOW [facility] Stop: 05/18/18 17:59 Last Admin: 05/18/18 15:06 Dose: 258 mls Lisinopril (Zestril) 10 mg PO DAILY [facility] Last Admin: 05/18/18 09:52 Dose: 10 mg Lorazepam (Ativan) 2 mg SLOW IVP Q1H PRN PRN Reason: Breakthrough agitation Stop: 06/16/18 01:29 Last Admin: 05/17/18 09:54 Dose: 2 mg Mineral Oil/White Petrolatum (Systane Nighttime Eye Ointment) 0 gm EA EYE PRN PRN PRN Reason: Dry Eyes Miscellaneous Medication (Ventilator Sedation Protocol) 1 each FS ONE [facility] Stop: 06/16/18 01:31 Discontinue Previous Narcotic Pain Medications And Benzodiazepines 1 each FS .ONE [facility] Stop: 06/16/18 01:29 Prednisone (Prednisone) 40 mg PO QA-[facility] Stop: 05/21/18 08:01 Last Admin: 05/18/18 09:51 Dose: 40 mg Propofol (Diprivan) 1,000 mg IV INF PRN; Protocol PRN Reason: TO ACHIEVE GOAL RASS Stop: 06/16/18 01:29 Last Admin: 05/18/18 15:12 Dose: 1,000 mg Propofol (Diprivan Bolus) 20 mg IV Q5MIN PRN PRN Reason: BREAKTHROUGH AGITATION Stop: 06/16/18 01:29 Sodium Chloride (Flush - Normal Saline) 10 ml IVF Q12HR [facility] Last Admin: 05/18/18 09:53 Dose: 10 ml Sodium Chloride (Flush - Normal Saline) 10 ml IVF PRN PRN PRN Reason: Saline Flush Thiamine HCl (Thiamine) 100 mg PO DAILY [facility] Last Admin: 05/18/18 09:51 Dose: 100 mg
[2018-05-18] MEDS: hydrALAZINE 20 MG/ML VIAL SLOW IVP PRN (20:02)
[2018-05-19] MEDS: MEROPENEM 1 GM/50 ML 1 GM in Premix Bag 1 BAG IVPB SCH ×2 (01:18→09:50)
[2018-05-19 06:31] LABS: #Monocytes 0.8 thou/uL (0.11-0.59); #Neutrophils 11.8 thou/uL (1.40-6.50); %Basophils 0.1 % (0.0-1.0); %Eosinophils 0.3 % (0.0-10.0); %Lymphocytes 7.1 % (21.0-51.0); %Monocytes 5.5 % (0.0-10.0); Mean Corpuscular HGB CONC 30.9 g/dL (32.0-36.0); Mean Corpuscular Hemoglobin 30.9 pg (27.0-31.0); Mean Platelet Volume 7.1 fL (7.4-10.4); Platelet Count 231 thou/uL (130-400); RBC Distribution Width 14.1 % (11.5-14.5); Red Blood Cell (RBC) Count 3.87 mill/uL (4.20-5.40); White Blood Cell (WBC) Count 13.5 thou/uL (4.8-10.8)
[2018-05-19 06:44] LABS: Anion Gap 12 mmol/L (10-20); BUN (Urea Nitrogen) 14 mg/dL (9.8-20.1); Calc. Creatinine Clearance 186 mL/min (70-130); Calcium 8.8 mg/dL (7.8-10.44); Carbon Dioxide 33 mmol/L (22-29); Chloride 97 mmol/L (98-107); Estimated GFR-MDRD 72; Glucose 117 mg/dL (70-105); Magnesium 2.1 mg/dL (1.6-2.6); Potassium 3.7 mmol/L (3.5-5.1); Sodium 138 mmol/L (136-145)
[2018-05-19] MEDS ORDERED: Norepinephrine 8 MG/0.9% NS 250 ML ONE (09:23)
[2018-05-19] MEDS: predniSONE 20 MG TAB PO SCH (09:48)
[2018-05-19] MEDS: Folic Acid 1 MG TAB PO SCH (09:49)
[2018-05-19] MEDS: Famotidine/PF 20 mg/2ml Vial SLOW IVP SCH (09:49)
[2018-05-19] MEDS: Carvedilol 3.125 MG TAB PO SCH ×2 (09:49→17:01)
[2018-05-19] MEDS: Lisinopril 10 MG TAB PO SCH (09:50)
--- NOTE | 2018-05-19 10:24 | PRG ---
DATE OF SERVICE: 05/19/2018 SERVICE: Pulmonary Medicine. INTERVAL HISTORY: Overnight, the patient had a profound drop in neurologic function. She started breathing. She started riding the ventilator, and made no respiratory effort. She lost her gag and her cough. Her pupils went essentially nonresponsive. This morning, the same thing exist. As such, I had a conversation with the patient's family about the meaning of this. They understand that at this point, we believe that she is brain . We are going to be doing a confirmation study soon. She cannot provide any additional elements of the history. Originally, she was horrendously hypertensive, but has dropped her blood pressures a little bit. Her heart rate is also now within the normal limits. PHYSICAL EXAMINATION: VITAL SIGNS: Afebrile, pulse 134, blood pressure 110/84, respirations 22, saturation 98% on 37% FiO2 and a PEEP of 7. GENERAL: The patient is intubated. She is not on any sedation at this point. HEENT: Normocephalic and atraumatic. Sclerae white. Conjunctivae pink. Oral mucosa is moist without lesions. LUNGS: Decent air entry. Crackles are present. There is a prolonged expiratory phase. She is moving better air. HEART: Normal rate, regular. ABDOMEN: Soft, nontender, and nondistended. Bowel sounds are positive. MUSCULOSKELETAL: No cyanosis or clubbing. There is 1+ pitting with bilateral stasis changes. : Renee catheter in place. NEUROLOGIC: She does not withdraw from noxious stimuli in all 4 extremities. Her pupils are nonresponsive to light and completely fixed. They are roughly symmetric. She does not demonstrate a cough, gag, corneal, and is not overbreathing the ventilator despite the fact that I turned her oxygen up and the rate down to 2 for over a minute. During that time, she remained hemodynamically stable. IMAGING DATA: WBC 13.5, hemoglobin 12.0, platelets 231,000. Basic metabolic profile is essentially unremarkable with an improving creatinine of 0.82. Magnesium 2.1. Urine culture is growing Citrobacter and Klebsiella pneumoniae, which are sensitive to the meropenem. Blood cultures x2 remain unremarkable. ASSESSMENT: 1. Acute hypoxic and hypercapnic respiratory failure. 2. Pulseless electrical activity arrest. 3. Chronic obstructive pulmonary disease with acute exacerbation. 4. Anoxic brain injury with likely brain . 5. Severe sepsis. 6. Urinary tract infection secondary to Citrobacter. 7. Acute kidney injury, resolved. DISCUSSION AND PLAN: The patient is doing very poorly from a neurologic standpoint. We are going to proceed with brain analysis. If this is abnormal, we will notify the family that the patient has passed on. I have already talked to both the patient's sister and the brother. I attempted to call the patient's daughter, but unfortunately, she was sleeping because she was here late last night and did not shredder picker the phone. Both the sister and brother are aware of the situation. The sister thanked us profusely for the efforts that we made. She understands that the is expected during this hospital stay. CRITICAL CARE TIME: 30 minutes. Job ID: [id number] [facility]
[2018-05-19] MEDS ORDERED: Norepinephrine 8 MG/250 ML BAG IVPB PRN (12:00)
[2018-05-19] MEDS: Enoxaparin Sodium 40 MG/0.4 ML SYRINGE SC SCH (13:24)
[2018-05-19 14:06] VITALS: BMI 49.6
[2018-05-19 15:03] LABS: Actual Bicarbonate (HCO3a) 35.5 mEq/L (22-28); Base Excess (BEa) 9.6 mEq/L (-2.0 to +3.0); CO2 Tension 53.5 mmHg (35.0-45.0); Calcium, Ionized 1.18 mmol/L (1.12-1.30); Carboxyhemoglobin (COHb) 1.3 gm% (0.0-3.0); Hemoglobin (Hb) 13.4 g/dL (12.0-16.0); pH, Arterial 7.44 (7.35-7.45)
[2018-05-19 15:07] LABS: ALV-art Gradient 562.125 (0-20); Puncture Site RRA
[2018-05-19 15:33] VITALS: BP 112/57
[2018-05-19 15:35] LABS: Actual Bicarbonate (HCO3a) 34.3 mEq/L (22-28); Base Excess (BEa) 9.8 mEq/L (-2.0 to +3.0); CO2 Tension 45.4 mmHg (35.0-45.0); Calcium, Ionized 1.15 mmol/L (1.12-1.30); Carboxyhemoglobin (COHb) 1.3 gm% (0.0-3.0); Hemoglobin (Hb) 13.1 g/dL (12.0-16.0); O2 Tension (PaO2) 74.3 mmHg (80.0-100.0); Potassium - ABG Lab 4.01 mmol/L (3.70-5.30)
[2018-05-19 15:37] LABS: Puncture Site RRA
[2018-05-19 17:53] VITALS: TEMP 99.2
--- NOTE | 2018-05-19 17:54 | NM ---
RADIONUCLIDE CEREBRAL FLOW SCAN: 05/19/18 HISTORY: Clinical brain . RADIOPHARMACEUTICAL: 30 millicuries technetium 99m HMPAO injected intravenously. FINDINGS: No intracranial blood flow or tracer uptake by the brain tissue is seen. IMPRESSION: Absent brain perfusion. POS: [facility]
--- NOTE | 2018-05-19 18:47 | PRG ---
DATE OF SERVICE: 05/19/2018 Ms. Ashley' flow study was reviewed. She has no flow. She was pronounced at 1825 hours. I met with the daughter who was at the bedside. I have explained to the daughter that she can sit at the bedside for as long as she wants within a reasonable period of time. All the family members or friends who are here can come in and see her prior to terminal extubation. She has actually apparently been estranged from her mom for 5 years, so this is a difficult situation for her. We have explained to her that she can make the decisions about who stays in the room and who does not once she is extubated. She has been pronounced based on her nuclear study and the other clinical criteria. Her body will be released to the home once she passes. Job ID: [id number]
--- NOTE | 2018-05-22 00:49 | DIS ---
DATE OF ADMISSION: 05/15/2018 DATE OF DISCHARGE: 05/19/2018 SUMMARY: DATE OF : 05/19/2018. HOSPITAL COURSE: The patient was a 57-year-old female with a history of hypertension, obstructive sleep apnea undiagnosed, not on any medication, not on any CPAP, who initially was sent from the PCP's office for hypoxia. The patient stated that she has been hypoxic for many years and had a consultation with [facility] for sleep study to get a CPAP machine. The patient initially underwent a CTA chest, which was negative for pulmonary embolism. She also had an echocardiogram that indicated an EF of 60% to 65% with [id number] tricuspid regurgitation and mild mitral regurgitation. She was initially also put on antibiotics for possible UTI. However, during the night on 03/16, she went into PEA arrest. She was resuscitated and she was transferred to the ICU. The patient initially was thought to have be in alcohol withdrawal. She was put on propofol and Precedex. However, the patient had an EEG, which was negative for seizures. The patient's mental status continued to deteriorate. She was becoming not responsive even to painful stimuli. At this time, brain flow scan was done, which indicated absent brain perfusion. Family was updated about this and they decided to extubate the patient and the patient . The patient also had a history of alcohol abuse. Initially when she came in, her alcohol level at that time was 59. She also was found on UA to have UTI, also was found to have Citrobacter and Klebsiella pneumoniae. However, the blood cultures were negative. Condolences were given to the patient's family. Job ID: [id number]
== END 2018-05-19 18:57 | disposition expired | DRG 208 ==
LOC: ERS 12:15 → ERHOLD 15:41 → OBSVTOIN 15:41 → 2NO 18:16 → CCU 05-17 01:08
PROVIDERS: ADMIT Internal Medicine; ATTEND Internal Medicine
PROC: 0BH17EZ Insertion of Endotracheal Airway into Trachea, Via Natural or Artificial Opening (ICD-10-PCS; principal; 2018-05-17)
PROC: 5A1945Z Respiratory Ventilation, 24-96 Consecutive Hours (ICD-10-PCS; 2018-05-17)
PROC: 4A10X4Z Monitoring of Central Nervous Electrical Activity, External Approach (ICD-10-PCS; 2018-05-17)
PROC: 5A12012 Performance of Cardiac Output, Single, Manual (ICD-10-PCS; 2018-05-17)
DX: E66.2 Morbid (severe) obesity with alveolar hypoventilation (principal); A41.9 Sepsis, unspecified organism; J96.21 Acute and chronic respiratory failure with hypoxia; J96.22 Acute and chronic respiratory failure with hypercapnia; R65.20 Severe sepsis without septic shock; Z68.42 Body mass index [BMI] 45.0-49.9, adult; N39.0 Urinary tract infection, site not specified; N17.9 Acute kidney failure, unspecified; J44.1 Chronic obstructive pulmonary disease with (acute) exacerbation; F10.239 Alcohol dependence with withdrawal, unspecified; G93.1 Anoxic brain damage, not elsewhere classified; Z87.01 Personal history of pneumonia (recurrent); B96.1 Klebsiella pneumoniae [K. pneumoniae] as the cause of diseases classified elsewhere; I46.9 Cardiac arrest, cause unspecified; G62.9 Polyneuropathy, unspecified; I10 Essential (primary) hypertension; I07.1 Rheumatic tricuspid insufficiency; G47.30 Sleep apnea, unspecified; F41.9 Anxiety disorder, unspecified; F32.9 Major depressive disorder, single episode, unspecified; M19.90 Unspecified osteoarthritis, unspecified site; F17.210 Nicotine dependence, cigarettes, uncomplicated; I34.0 Nonrheumatic mitral (valve) insufficiency; Y90.2 Blood alcohol level of 40-59 mg/100 ml; B96.89 Other specified bacterial agents as the cause of diseases classified elsewhere
CPT/HCPCS: 36415; 71045; 71275; 78610; 80048; 80053; 80307; 81003; 81015; 82550; 82553; 82607; 82805; 83036; 83605; 83735; 83880; 84100; 84484; 85025; 85379; 85610; 85730; 87040; 87077; 87086; 87186; 93005; 93306; 94002; 94003; 94640; 95816; 95819; A9521; J0171; J0360; J0696; J1650; J1940; J2060; J2185; J2597; J2704; J3370; J3411; J3475; J3490; J7042; J7050; J7620; Q9966; S0028